=== PATIENT | male | born 1940 | race Caucasian/White ===

== ENCOUNTER 2018-08-11 09:37 | Emergency (ER) | payer MEDICARE ==
[~2018-08-11] VITALS: Ht 175.3 cm; Wt 108.9 kg
[~2018-08-11 09:37] MED LIST: CENTRUM COMPLE1 EACH PO; DRON400T PO; Flecainide Acet50 MG; LOSA50 PO; METO50ER PO; OSTERA TABLET1 EACH PO; Preservision A1 EACH PO; TRAM50 PO; XARELTO20 MG PO
[2018-08-11] MEDS ORDERED: Naltrexone HCl50 MG PO (10:26)
[2018-08-11] MEDS ORDERED: BUPR75 PO (10:26)
[2018-08-11] MEDS ORDERED: Keflex500 MG PO (11:22)
== END 2018-08-11 11:26 | disposition home or self-care (01) ==
LOC: ER 09:37
DX: M79.81 Nontraumatic hematoma of soft tissue (principal); I48.91 Unspecified atrial fibrillation; Z86.711 Personal history of pulmonary embolism; M79.662 Pain in left lower leg; Z86.718 Personal history of other venous thrombosis and embolism; Z79.899 Other long term (current) drug therapy; Z96.641 Presence of right artificial hip joint; Z96.652 Presence of left artificial knee joint; Z96.611 Presence of right artificial shoulder joint; Z87.891 Personal history of nicotine dependence
CPT/HCPCS: 36430; 73564; 93971; 96365; 96366; 96375; 99285-25

== ENCOUNTER 2019-04-18 16:13 | Emergency (ER) | payer MEDICARE ==
[~2019-04-18] VITALS: Ht 172.7 cm; Wt 103.8 kg
[~2019-04-18 16:13] MED LIST changes: +BUPR75 PO; +Keflex500 MG PO; +Naltrexone HCl50 MG PO
== END 2019-04-18 18:30 | disposition home or self-care (01) ==
LOC: ER 16:13
DX: S01.81XA Laceration without foreign body of other part of head, initial encounter (principal); Z79.899 Other long term (current) drug therapy; Z79.01 Long term (current) use of anticoagulants; W01.10XA Fall on same level from slipping, tripping and stumbling with subsequent striking against unspecified object, initial encounter
CPT/HCPCS: 12011; 70450; 70486; 90714; 99284-25

== ENCOUNTER 2019-11-16 10:05 | Emergency (ER) | payer MEDICARE ==
[~2019-11-16] VITALS: Ht 175.3 cm; Wt 103.4 kg
== END 2019-11-16 10:58 | disposition home or self-care (01) ==
LOC: ER 10:05
DX: S80.02XD Contusion of left knee, subsequent encounter (principal); I48.91 Unspecified atrial fibrillation; Z79.899 Other long term (current) drug therapy; Z86.718 Personal history of other venous thrombosis and embolism; Z86.711 Personal history of pulmonary embolism; Z87.891 Personal history of nicotine dependence; W19.XXXD Unspecified fall, subsequent encounter
CPT/HCPCS: 73110; 73560-LT; 99283-25

== ENCOUNTER → 2025-04-22 | Outpatient (CLI) | payer MEDICARE ==
[~2025-04-22] MED LIST changes: +AMLODIPINE BES2.5 MG PO; +Amiodarone HCl200 MG PO; +DOCU100 PO; +ELIQUIS5 M2 PO; +ROSUVASTATIN CA20 MG PO; +VALSARTAN160 MG PO
[2025-04-22 08:16] LABS: BASOPHILS ABSOLUTE AUTO 0.04 K/mm3 (0.00-0.23); BASOPHILS PERCENT AUTO 1 % (0-2); EOSINOPHILS ABSOLUTE AUTO 0.13 K/mm3 (0.00-0.68); EOSINOPHILS PERCENT AUTO 2 % (0-6); Hematocrit 41.5 % (37.0-53.0); Hemoglobin 14.8 g/dL (13.5-17.5); IMMATURE GRAN ABSOLUTE AUTO 0.04 K/mm3 (0.00-0.10); IMMATURE GRAN PERCENT AUTO 1 % (0-1); LYMPHOCYTES ABSOLUTE AUTO 1.08 K/mm3 (0.84-5.20); LYMPHOCYTES PERCENT AUTO 18 % (21-46); MONOCYTES ABSOLUTE AUTO 0.84 K/mm3 (0.16-1.47); MONOCYTES PERCENT AUTO 14 % (4-13); Mean Corpuscular HGB Conc 35.7 g/dL (31.5-36.5); Mean Corpuscular Volume 93 fL (80-100); NEUTROPHILS ABSOLUTE AUTO 3.89 K/mm3 (1.96-9.15); NEUTROPHILS PERCENT AUTO 65 % (41-73); NRBC ABSOLUTE 0.00 K/mm3 (0.00-0.02); NRBC Auto 0.0 /100 WBC (0.0-0.2); Platelet Count 313 K/mm3 (150-400); RDW Coefficient Variation 13.8 % (11.7-14.2); RDW Standard Deviation 46.5 fL (35.1-46.3)
[2025-04-22 08:36] LABS: Alanine Aminotransfer (ALT/SGP 16.0 U/L (12-78); Albumin, Blood 3.2 g/dL (3.4-5.0); Albumin/Globulin Ratio 0.9 (0.8-1.8); Anion Gap 13.0 mmol/L (3-11); Aspartate Aminotrans (AST/SGOT 28.0 U/L (12-37); Bilirubin, Total 1.4 mg/dL (0.1-1.0); Blood Urea Nitrogen 18.0 mg/dL (8-24); CO2, Blood 24.0 mmol/L (21-32); Calcium, Blood 9.1 mg/dL (8.5-10.1); Chloride, Blood 98.0 mmol/L (98-108); Creatinine, Blood 0.8 mg/dL (0.60-1.20); Globulin, Blood 3.7 g/dL (2.2-4.0); Glucose, Blood 114.0 mg/dL (70-99); Potassium, Blood 4.4 mmol/L (3.5-5.5); Sodium, Blood 131.0 mmol/L (136-145); Thyroid Stimulating Hormone 1.548 uIU/mL (0.360-4.800); Total Protein, Blood 6.9 g/dL (6.4-8.2)
== END ==
LOC: LAB 08:12 → LAB SHORT 08:12
PROVIDERS: Physician Assistant
DX: R53.83 Other fatigue (principal)
CPT/HCPCS: 80053; 83880; 84443; 85025